=== PATIENT | male | born 1950 | race Caucasian/White ===

== ENCOUNTER 2025-07-27 11:57 | Outpatient (CLI) | payer MEDICARE, OTHER, SELFPAY ==
--- NOTE | ~2025-07-27 | XR_ITS ---
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 There is no subluxation with flexion and extension. Moderate to severe loss of disc height at C3-4 with moderate loss of disc height at C6-7 and C5-6. Soft tissues unremarkable Impression: No acute abnormality. Reviewed, dictated and finalized at location P. [employer] Impression: No acute abnormality.
== END 2025-07-27 11:58 | disposition home or self-care (01) ==
LOC: ANHIMG 12:04
PROVIDERS: PCP Internal Medicine; Visit Provider Neurological Surgery
DX: G95.9 Disease of spinal cord, unspecified (principal)
CPT/HCPCS: 72050